=== PATIENT | female | born 2000 | race Hispanic/Latino ===

== ENCOUNTER 2022-11-03 11:27 | Emergency (ER) | payer SELFPAY ==
[2022-11-03 12:36] LABS: Bilirubin Negative (Negative); Blood, Urine Large (Negative); Clarity Slightly Cloudy (Clear); Glucose, Urine (Dipstick) Negative (Negative); Ketone, Urine Negative (Negative); Leukocyte Small (Negative); Nitrite Negative (Negative); Protein, Urine (Dipstick) 100 mg/dL (Neg-Trace); Specific Gravity, Urine 1.025 (1.005-1.030); Urobilinogen 0.2 mg/dL (Less than 2)
[2022-11-03 12:42] LABS: Bacteria/HPF 4+ HPF (None Seen); RBC/HPF Greater than 50 HPF (0-3); WBC/HPF Greater Than 50 HPF (0-3)
[2022-11-03 13:12] LABS: Band 8 % (5-11); Eosinophils 1 % (0-10); Hemoglobin 11.6 g/dL (12.0-16.0); Hypochromia SLIGHT = 6-15 cells (100X) (0-5/hpf); Lymphocytes 11 % (28-48); MDiff Complete? YES; Mean Corpuscular HGB CONC 33.1 g/dL (32.0-36.0); Mean Corpuscular Hemoglobin 32.8 pg (25.0-35.0); Mean Corpuscular Volume 98.9 fl (78.0-98.0); Monocytes 3 % (0-4); Neutrophil 77 % (31-61); Platelet Count 289 10x3/uL (130-400); Platelet Morphology Comment Appears Adequate; RBC Distribution Width 12.9 % (11.5-14.5); Red Blood Cell (RBC) Count 3.53 mill/uL (4.00-5.20); White Blood Cell (WBC) Count 13.1 10x3/uL (4.8-10.8)
== END 2022-11-03 12:20 | disposition short-term general hospital (02) ==
LOC: MADERS 11:27
DX: O99.612 Diseases of the digestive system complicating pregnancy, second trimester (principal); O20.8 Other hemorrhage in early pregnancy; D72.829 Elevated white blood cell count, unspecified; Z3A.16 16 weeks gestation of pregnancy
CPT/HCPCS: 36415; 81003; 81015; 85025; 86900; 86901; 99284